=== PATIENT | female | born 1955 | race Two or more races ===

== ENCOUNTER 2023-05-14 05:59 | Day surgery (SDC) | payer OTHER ==
[~2023-05-14 05:59] MED LIST: AVAPRO300 MG PO; BACLOFEN20 MG PO; DICY20TA PO; HORIZANT300 MG PO; PEPCID40 MG PO; ZIPSOR25 MG PO
[2023-05-14] MEDS ORDERED: CEFAZOLIN SODIUM 1,000 MG VIAL ONE (08:05)
[2023-05-14] MEDS ORDERED: CEFAZOLIN SODIUM 1,000 MG VIAL IV ONE (09:30)
== END 2023-05-14 13:00 | disposition home or self-care (01) ==
LOC: CIR.AMB 05:59
PROVIDERS: ATTEND Obstetrics & Gynecology Gynecology
DX: N88.8 Other specified noninflammatory disorders of cervix uteri (principal); N88.4 Hypertrophic elongation of cervix uteri; N72 Inflammatory disease of cervix uteri; I10 Essential (primary) hypertension; Z20.822 Contact with and (suspected) exposure to COVID-19